=== PATIENT | female | born 1940 | race Caucasian/White ===

== ENCOUNTER 2016-04-26 20:15 | Emergency (ER) | payer MEDICARE, OTHER ==
[~2016-04-26 20:15] MED LIST: ACET325T40 PO; ALPR0.5T PO; AMLO-147 PO; ASPI-535 PO; BENA40TA41 PO; CALC-695 PO; CARV12.579 PO; CLON-379 PO; DOCU-159 PO; HYD25 PO; METF500T4 PO; MULT-7 PO; NIT4 SL; OMEP20CA16 PO; SENN-8 PO; ZOLP10TA PO
== END 2016-04-26 21:36 | disposition left against medical advice (07) ==
LOC: E/R 20:15
DX: Z53.21 Procedure and treatment not carried out due to patient leaving prior to being seen by health care provider (principal)

== ENCOUNTER 2016-04-26 22:17 | Emergency (ER) | payer MEDICARE, OTHER ==
[~2016-04-26] VITALS: Ht 162.6 cm; Wt 60.0 kg
[2016-04-26 22:21] VITALS: Ht 162.6 cm; Wt 60.0 kg
--- NOTE | 2016-04-27 03:24 | ERA ---
ER Documentation Chief Complaint Date/Time DATE: 04/27/16 TIME: 03:23 Chief Complaint High blood pressure HPI The patient is a 76-year-old female, presenting to the ER because of high blood pressure at home, it was 220/90 around 8 PM; therefore he came to the hospital. She complains of minimal head discomfort, minimal dizziness at that time but denies any symptoms now. She denies facial pain, neck pain, chest pain, abdominal pain, vomiting, dysuria, diarrhea. She has similar symptoms previously. She complains of minimal left-sided abdominal discomfort today but denies any symptoms now. She does not smoke, drink Past medical history: Hypertension, anxiety, CAD, diabetes mellitus Past surgical history: Left nephrectomy, stent PCI, bilateral femur ROS All systems reviewed and are negative except as per history of present illness. Medications Home Meds Active Scripts Clonidine Hcl* (Clonidine Hcl*) 0.1 Mg Tab, 0.2 MG PO BID, #30 TAB Prov:KAYLEE CAMERON MD 03/10/15 Acetaminophen (MAPAP) 325 Mg Tab, 650 MG PO Q6H Y for PAIN LEVEL 1-3 OR FEVER, # 30 TAB Prov:PRADEEP FLYNN MD 02/27/15 Zolpidem Tartrate* (Ambien*) 10 Mg Tablet, 10 MG PO QHS Y for INSOMNIA, #45 TAB Prov:PRADEEP FLYNN MD 02/27/15 Sennosides/Docusate Sodium* (Senna-S*) 1 Tab Tablet, 1 TAB PO BID Y for CONSTIPATION for 30 Days, TAB Prov:PRADEEP FLYNN MD 02/27/15 Alprazolam* (Xanax*) 0.5 Mg Tab, 0.5 MG PO Q8H Y for ANXIETY, #45 TAB 1 Refill Prov:PRADEEP FLYNN MD 02/27/15 Nitroglycerin* (Nitrostat*) 25 Tab Subl, 1 TAB SL [id number] Y for CHEST PAIN, #30 Prov:BLACK INIGUEZ MD 02/11/14 Reported Medications Multivitamins (Daily Multiple Vitamin) 1 Tab Tablet, 1 TAB PO DAILY, TAB 02/22/15 Hydrochlorothiazide* (Hydrochlorothiazide*) 25 Mg Tab, 25 MG PO DAILY, TAB 02/22/15 Carvedilol* (Carvedilol*) 12.5 Mg Tablet, 12.5 MG PO BID, TAB 02/22/15 Calcium Carbonate/Vitamin D3 (Calcium 600 + D Tablet) 1 Each Tablet, 1 EACH PO DAILY, TAB 02/22/15 Amlodipine Besylate* (Amlodipine Besylate*) 10 Mg Tablet, 10 MG PO DAILY, TAB 02/20/15 Benazepril Hcl* (Benazepril Hcl*) 40 Mg Tablet, 40 MG PO DAILY, TAB 02/20/15 Metformin* (Glucophage*) 500 Mg Tab, 500 MG PO BID, TAB 02/20/15 Docusate Sodium* (Docusate Sodium*) 100 Mg Capsule, 100 MG PO DAILY, CAP 02/20/15 Omeprazole* (Omeprazole*) 20 Mg Capsule.dr, 20 MG PO DAILY, CAP 02/20/15 Aspirin Ec (Aspir 81) 81 Mg Tablet.dr, 81 MG PO DAILY 11/29/11 Allergies Allergies: Coded Allergies: Sulfa (Sulfonamide Antibiotics) (Verified Allergy, Unknown, 03/11/15) penicillin G (Verified Allergy, Unknown, 03/11/15) PMhx/Soc History of Surgery: Yes (R kidney removed, HIP PINNING LT HIP;STENTS PLACED 2YRS AGO) Anesthesia Reaction: No Hx Neurological Disorder: No (SEIZURES) Hx Respiratory Disorders: No Hx Cardiac Disorders: Yes (HIGH BP;HIGH LIPIDS;STENTS) Hx Psychiatric Problems: No Hx Miscellaneous Medical Probl: No Hx Alcohol Use: No Hx Substance Use: No Hx Tobacco Use: No Smoking Status: Never smoker Physical Exam Vitals Vital Signs Date Time Temp Pulse Resp B/P Pulse Ox O2 Delivery O2 Flow Rate FiO2 04/27/16 03:20 64 17 206/85 100 Room Air 04/27/16 01:58 245/106 04/27/16 01:34 56 20 227/93 99 Room Air 04/27/16 00:56 216/102 04/26/16 23:30 207/81 04/26/16 23:11 240/101 04/26/16 22:21 98.9 78 20 274/140 99 Physical Exam Const: No acute distress. Head: Atraumatic. Eyes: Normal Conjunctiva. ENT: Normal External Ears, Nose and Mouth. Neck: Full range of motion. No meningismus. Resp: Clear to auscultation bilaterally. Cardio: Regular rate and rhythm, no murmurs. Abd: Soft, non distended, normal bowel sounds, non tender. No rigidity, rebound, CVA tenderness Skin: No petechiae or rashes. Back: No midline or flank tenderness. Ext: No cyanosis, or edema. Neur: Awake and alert. No focal deficit Psych: Normal Mood and Affect. Results 24 hrs Laboratory Tests Test 04/27/16 04:20 Activated Partial Thromboplast Time 24.2Sec INR International Normalized Ratio 0.95 Prothrombin Time 12.7Sec Prothrombin Time Ratio 1.0 Current Medications Medications (Trade) Dose Ordered Sig/Lupillo Route PRN Reason Start Time Stop Time Status Last Admin Dose Admin Hydralazine HCl (Apresoline) 10 mg ONCE ONCE IV 04/27/16 03:30 04/27/16 03:32 DC 04/27/16 04:03 Procedures/[place] [id number] Radiology Main Line: [phone] DIAGNOSTIC IMAGING REPORT Patient: MARV WINSTON : 1940 Age: 76 Sex: F MR #: [id number] DOS: 04/27/16 0330 Ordering MD: DYLAN PAIGE MD Location: E/R Room/Bed: PROCEDURE: CT brain without contrast. CLINICAL INDICATION: Headache. TECHNIQUE: CT scan of the brain was performed on a multi-detector high- resolution CT scanner. Contiguous axial images were obtained from the skull base to the vertex without intravenous contrast. Coronal and sagittal reformatted images were also obtained. Images were reviewed on the PACS workstation. One or more of the following dose reduction techniques were used: - Automated exposure control. - Adjustment of the mA and/or kV according to patient size. - Use of iterative reconstruction technique. Exam CTD/vol = 45.01 mGy. Total exam DLP = 720.23 mGy-cm. COMPARISON: 02/23/2015. FINDINGS: The ventricles and cortical sulci are prominent consistent with mild age related volume loss. There are no areas of abnormal attenuation within the brain parenchyma. There is no mass effect or midline shift. There is no intracranial hemorrhage or abnormal extra-axial collection. There are atherosclerotic calcifications within bilateral distal internal carotid arteries. The calvarium is intact. There is no evidence of fracture. Visualized paranasal sinuses and mastoid air cells are clear. IMPRESSION: No acute intracranial abnormality identified. Mild age related volume loss. Cerebral atherosclerosis. .Luan Frost MD, MD Date Time Electronically viewed and signed by .Luan Frost MD, on 04/27/2016 04:41 .T/ CC: DYLAN PAIGE MD MEDICAL MAKING DECISION: The patient is a 75-year-old female, presenting with acute accelerated hypertension. She was treated with hydralazine 10 mg IV with good response. The differential diagnoses considered include but are not limited to subarachnoid hemorrhage, occult trauma, CVA, meningitis, encephalitis , hypertension, tension, migraine, cluster, narcotic withdrawal, cervical spine disease. Departure Diagnosis: Primary Impression: Accelerated hypertension Condition: Good Comments I discussed the findings with the patient. I advised the patient to follow-up with the primary physician in about 1-2 days, sooner if needed and return if any concern. DYLAN PAIGE MD Apr 27, 2016 03:24
[2016-04-27] MEDS ORDERED: hydrALAzine 20 MG INJ IV ONE (03:30)
--- NOTE | 2016-04-27 04:42 | RADRPT ---
PROCEDURE: CT brain without contrast. CLINICAL INDICATION: Headache. TECHNIQUE: CT scan of the brain was performed on a multi-detector high-resolution CT scanner. Co ntiguous axial images were obtained from the skull base to the vertex without intravenous contrast. Coronal and sagittal reformatted images were also obtained. Images were reviewed on the PACS works tation. One or more of the following dose reduction techniques were used: - Automated exposure control. - Adjustment of the mA and/or kV according to patient size. - Use of iterative reconstruction technique. Exam CTD/vol = 45.01 mGy. Total exam DLP = 720.23 mGy-cm. COMPARISON: 02/23/2015. FINDINGS: The ventricles and cortical sulci are prominent consistent with mild age related volume loss. There are no areas of abnormal attenuation within the brain parenchyma. There is no mass effect or midli ne shift. There is no intracranial hemorrhage or abnormal extra-axial collection. There are atheros clerotic calcifications within bilateral distal internal carotid arteries. The calvarium is intact. There is no evidence of fracture. Visualized paranasal sinuses and mastoi d air cells are clear. IMPRESSION: No acute intracranial abnormality identified. Mild age related volume loss. Cerebral atherosclerosis. .Luan Frost MD, Date Time Electronically viewed and signed by .Luan Frost MD, MD on 04/27/2016 04:41 .T/
[2016-04-27 05:00] VITALS: BP 155/60; PULSE 64; RESP 16; TEMP 98.9
[2016-04-27 05:04] LABS: INR 0.95; PROTIME 12.7 Sec (12.2-14.2)
[2016-04-27 05:05] LABS: PARTIAL THROMBOPLASTIN TIME 24.2 Sec (25.0-35.0)
[2016-04-27 05:07] LABS: POTASSIUM 4.5 mmol/L (3.5-5.1)
[2016-04-27 05:10] LABS: CALCIUM 10.2 mg/dl (8.4-10.2); CREATININE 0.81 mg/dl (0.44-1.00)
[2016-04-27 05:18] LABS: HEMOGLOBIN 12.1 g/dl (12.0-16.0); RED BLOOD COUNT 3.76 10^6/ul (4.20-5.40); WHITE BLOOD COUNT 8.2 10^3/ul (4.8-10.8)
[2016-04-27 05:19] LABS: BASOPHILS % 0.6 % (0.0-2.0); EOSINOPHILS % 2.8 % (0.0-7.0); HEMATOCRIT 34.4 % (37.0-47.0); LYMPHOCYTES % 36.6 % (15.0-51.0); MEAN CORPUSCULAR HEMOGLOBIN 32.2 pg (29.0-33.0); MEAN CORPUSCULAR HGB CONC 35.2 g/dl (32.0-37.0); MEAN CORPUSCULAR VOLUME 91.5 fl (82.0-101.0); MEAN PLATELET VOLUME 10.3 fl (7.4-10.4); MONOCYTE # 0.9 10^3/ul (0.3-0.9); MONOCYTES % 10.9 % (0.0-11.0); PLATELET COUNT 225 10^3/UL (140-440); RED CELL DISTRIBUTION WIDTH 12.1 % (11.5-14.5)
[2016-04-27 05:20] LABS: BASOPHIL # 0.1 10^3/ul (0.0-0.1); EOSINOPHILS # 0.2 10^3/ul (0.0-0.5)
== END 2016-04-27 06:20 | disposition home or self-care (01) ==
LOC: E/R 22:17
DX: I10 Essential (primary) hypertension (principal); E11.9 Type 2 diabetes mellitus without complications; I25.10 Atherosclerotic heart disease of native coronary artery without angina pectoris; R42 Dizziness and giddiness; R10.9 Unspecified abdominal pain; Z79.82 Long term (current) use of aspirin; Z79.84 Long term (current) use of oral hypoglycemic drugs; Z95.5 Presence of coronary angioplasty implant and graft
CPT/HCPCS: 70450; 80048; 85025; 85610; 85730; J0360; 36415; 96374

== ENCOUNTER 2017-01-05 10:54 | Emergency (ER) | payer MEDICARE, OTHER ==
[~2017-01-05] VITALS: Ht 162.6 cm; Wt 58.0 kg
[~2017-01-05 10:54] MED LIST changes: -HYD25 PO; +HYDR25TA6 PO
[2017-01-05 10:59] VITALS: Ht 162.6 cm; Wt 58.0 kg
[2017-01-05] MEDS ORDERED: SOD CHLORIDE 0.9% 1,000 ML IV STA (11:36)
[2017-01-05 11:52] LABS: BASOPHILS % 0.5 % (0.0-2.0); EOSINOPHILS # 0.2 10^3/ul (0.0-0.5); EOSINOPHILS % 3.1 % (0.0-7.0); HEMATOCRIT 34.8 % (37.0-47.0); HEMOGLOBIN 12.2 g/dl (12.0-16.0); LYMPHOCYTES # 1.9 10^3/ul (0.8-2.9); LYMPHOCYTES % 29.5 % (15.0-51.0); MEAN CORPUSCULAR HEMOGLOBIN 32.1 pg (29.0-33.0); MEAN CORPUSCULAR HGB CONC 35.1 g/dl (32.0-37.0); MEAN CORPUSCULAR VOLUME 91.6 fl (82.0-101.0); MEAN PLATELET VOLUME 9.5 fl (7.4-10.4); MONOCYTE # 0.6 10^3/ul (0.3-0.9); MONOCYTES % 9.1 % (0.0-11.0); NEUTROPHIL # 3.8 10^3/ul (1.6-7.5); NEUTROPHILS % 57.6 % (39.0-77.0); PLATELET COUNT 227 10^3/UL (140-415); RED CELL DISTRIBUTION WIDTH 11.9 % (11.5-14.5); WHITE BLOOD COUNT 6.5 10^3/ul (4.8-10.8)
[2017-01-05 11:55] LABS: ADD UMIC NO; UR ASCORBIC ACID NEGATIVE (NEGATIVE); UR BILIRUBIN (Dip) NEGATIVE (NEGATIVE); UR BLOOD (Dip) NEGATIVE (NEGATIVE); UR CLARITY CLEAR (CLEAR); UR COLOR STRAW (YELLOW); UR GLUCOSE (Dip) NEGATIVE (NEGATIVE); UR KETONES (Dip) NEGATIVE (NEGATIVE); UR LEUKOCYTE ESTERASE (Dip) NEGATIVE Leu/ul (NEGATIVE); UR NITRITE (Dip) NEGATIVE (NEGATIVE); UR RBC 0 /HPF (0-5); UR SPECIFIC GRAVITY (Dip) 1.003 (1.003-1.030); UR TOTAL PROTEIN (Dip) NEGATIVE (NEGATIVE); UR UROBILINOGEN (Dip) NEGATIVE (NEGATIVE)
[2017-01-05 12:12] LABS: ALBUMIN 4.9 g/dl (3.3-4.9); ALBUMIN/GLOBULIN RATIO 1.36; BILIRUBIN,INDIRECT 0.6 mg/dl (0-1.1); BILIRUBIN,TOTAL 0.6 mg/dl (0.2-1.3); CALCIUM 9.7 mg/dl (8.4-10.2); CREATININE 0.85 mg/dl (0.44-1.00); POTASSIUM 4.6 mmol/L (3.5-5.1); TOTAL PROTEIN 8.5 g/dl (6.1-8.1)
[2017-01-05] MEDS ORDERED: hydrALAzine 20 MG INJ IV ONE (12:30)
--- NOTE | 2017-01-05 13:01 | RADRPT ---
PROCEDURE: Ultrasound Retroperitoneum. CLINICAL INDICATION: Flank pain. History of right-sided renal cell carcinoma. TECHNIQUE: Ochoa scale and color flow sonographic images of the kidneys and retroperitoneum were ob tained. The images were reviewed on a PACS workstation. COMPARISON: No prior studies are available for comparison. FINDINGS: The right kidney has been removed. The left kidney measures 11.0 cm. The left kidney demonstrates a normal echogenicity. No masses, stones or hydronephrosis are identified. The bladder is filled with a [id number] amount of urine and has an unremarkable appearance. IMPRESSION: Status post right nephrectomy. Unremarkable left kidney. RPTAT: AA .Clark Armstrong MD, Date Time Electronically viewed and signed by .Clark Armstrong MD, MD on 01/05/2017 13:01 .P/
[2017-01-05 13:20] VITALS: BP 165/59; PULSE 73; RESP 16
--- NOTE | 2017-01-05 15:11 | ERD ---
ER Documentation Chief Complaint Date/Time DATE: 01/05/17 TIME: 15:10 Chief Complaint PAINFUL URINATION , LOWER BACK PAINX 3 DAYS , HTN HPI 77-year-old female with a history of right renal cell carcinoma status post right nephrectomy, and uterine prolapse with frequent UTIs presenting with complaints of painful urination and burning lower back pain for the past 3 days. She denies any associated fever, chills, nausea, vomiting, or flank pain. She does complain of mild suprapubic pain described as pressure. No vaginal discharge. She denies any chest pain or shortness of breath. No headache. ROS All systems reviewed and are negative except as per history of present illness. Medications Home Meds Active Scripts Clonidine Hcl* (Clonidine Hcl*) 0.1 Mg Tab, 0.2 MG PO BID, #30 TAB Prov:KAYLEE CAMERON MD 03/10/15 Acetaminophen (MAPAP) 325 Mg Tab, 650 MG PO Q6H Y for PAIN LEVEL 1-3 OR FEVER, # 30 TAB Prov:PRADEEP FLYNN MD 02/27/15 Zolpidem Tartrate* (Ambien*) 10 Mg Tablet, 10 MG PO QHS Y for INSOMNIA, #45 TAB Prov:PRADEEP FLYNN MD 02/27/15 Sennosides/Docusate Sodium* (Senna-S*) 1 Tab Tablet, 1 TAB PO BID Y for CONSTIPATION for 30 Days, TAB Prov:PRADEEP FLYNN MD 02/27/15 Alprazolam* (Xanax*) 0.5 Mg Tab, 0.5 MG PO Q8H Y for ANXIETY, #45 TAB 1 Refill Prov:PRADEEP FLYNN MD 02/27/15 Nitroglycerin* (Nitrostat*) 25 Tab Subl, 1 TAB SL [id number] Y for CHEST PAIN, #30 Prov:BLACK INIGUEZ MD 02/11/14 Reported Medications Multivitamins (Daily Multiple Vitamin) 1 Tab Tablet, 1 TAB PO DAILY, TAB 02/22/15 Hydrochlorothiazide* (Hydrochlorothiazide*) 25 Mg Tab, 25 MG PO DAILY, TAB 02/22/15 Carvedilol* (Carvedilol*) 12.5 Mg Tablet, 12.5 MG PO BID, TAB 02/22/15 Calcium Carbonate/Vitamin D3 (Calcium 600 + D Tablet) 1 Each Tablet, 1 EACH PO DAILY, TAB 02/22/15 Amlodipine Besylate* (Amlodipine Besylate*) 10 Mg Tablet, 10 MG PO DAILY, TAB 02/20/15 Benazepril Hcl* (Benazepril Hcl*) 40 Mg Tablet, 40 MG PO DAILY, TAB 02/20/15 Metformin* (Glucophage*) 500 Mg Tab, 500 MG PO BID, TAB 02/20/15 Docusate Sodium* (Docusate Sodium*) 100 Mg Capsule, 100 MG PO DAILY, CAP 02/20/15 Omeprazole* (Omeprazole*) 20 Mg Capsule.dr, 20 MG PO DAILY, CAP 02/20/15 Aspirin Ec (Aspir 81) 81 Mg Tablet.dr, 81 MG PO DAILY 11/29/11 Allergies Allergies: Coded Allergies: Sulfa (Sulfonamide Antibiotics) (Verified Allergy, Unknown, 03/11/15) penicillin G (Verified Allergy, Unknown, 03/11/15) PMhx/Soc History of Surgery: Yes (R kidney removed, HIP PINNING LT HIP;STENTS PLACED 2YRS AGO) Anesthesia Reaction: No Hx Neurological Disorder: No (SEIZURES) Hx Respiratory Disorders: No Hx Cardiac Disorders: Yes (HIGH BP;HIGH LIPIDS;STENTS) Hx Psychiatric Problems: No Hx Miscellaneous Medical Probl: Yes (Right renal cell carcinoma, uterine prolapse) Hx Alcohol Use: No Hx Substance Use: No Hx Tobacco Use: No Smoking Status: Never smoker FmHx Family History: No diabetes Physical Exam Vitals Vital Signs Date Time Temp Pulse Resp B/P Pulse Ox O2 Delivery O2 Flow Rate FiO2 01/05/17 13:20 73 16 165/59 99 Room Air 01/05/17 12:01 63 16 218/91 99 Room Air 01/05/17 10:59 98.9 62 18 204/142 99 Physical Exam Const: Well-appearing, nontoxic, no distress Head: Atraumatic Eyes: Normal Conjunctiva ENT: Normal External Ears, Nose and Mouth. Neck: Full range of motion..~ No meningismus. Resp: Clear to auscultation bilaterally Cardio: Regular rate and rhythm, no murmurs Abd: Soft, minimal suprapubic tenderness, no rebound or guarding, non distended. Normal bowel sounds Skin: No petechiae or rashes Back: No midline or flank tenderness Ext: No cyanosis, or edema. 2+ distal pulses in all 4 extremities Neur: Awake and alert Psych: Normal Mood and Affect Result Diagram: 01/05/17 1140 01/05/17 1140 Results 24 hrs Laboratory Tests Test 01/05/17 11:30 01/05/17 11:40 Urine Color STRAW Urine Clarity CLEAR Urine pH 7.0 Urine Specific Keller 1.003 Urine Ketones NEGATIVEmg/dL Urine Nitrite NEGATIVEmg/dL Urine Bilirubin NEGATIVEmg/dL Urine Urobilinogen NEGATIVEmg/dL Urine Leukocyte Esterase NEGATIVELeu/ul Urine Microscopic RBC 0/HPF Urine Microscopic WBC 0/HPF Urine Hemoglobin NEGATIVEmg/dL Urine Glucose NEGATIVEmg/dL Urine Total Protein NEGATIVEmg/dl White Blood Count 6.510^3/ul Red Blood Count 3.8010^6/ul Hemoglobin 12.2g/dl Hematocrit 34.8% Mean Corpuscular Volume 91.6fl Mean Corpuscular Hemoglobin 32.1pg Mean Corpuscular Hemoglobin Concent 35.1g/dl Red Cell Distribution Width 11.9% Platelet Count 74134^3/UL Mean Platelet Volume 9.5fl Neutrophils % 57.6% Lymphocytes % 29.5% Monocytes % 9.1% Eosinophils % 3.1% Basophils % 0.5% Nucleated Red Blood Cells % 0.0/100WBC Neutrophils # 3.810^3/ul Lymphocytes # 1.910^3/ul Monocytes # 0.610^3/ul Eosinophils # 0.210^3/ul Basophils # 0.010^3/ul Nucleated Red Blood Cells # 0.010^3/ul Sodium Level 133mmol/L Potassium Level 4.6mmol/L Chloride Level 96mmol/L Carbon Dioxide Level 26mmol/L Anion Gap 16 Blood Urea Nitrogen 16mg/dl Creatinine 0.85mg/dl Glucose Level 131mg/dl Calcium Level 9.7mg/dl Total Bilirubin 0.6mg/dl Direct Bilirubin 0.00mg/dl Indirect Bilirubin 0.6mg/dl Aspartate Amino Transf (AST/SGOT) 31IU/L Alanine Aminotransferase (ALT/SGPT) 38IU/L Alkaline Phosphatase 76IU/L Total Protein 8.5g/dl Albumin 4.9g/dl Globulin 3.60g/dl Albumin/Globulin Ratio 1.36 Current Medications Medications (Trade) Dose Ordered Sig/Lupillo Route PRN Reason Start Time Stop Time Status Last Admin Dose Admin Sodium Chloride (NS) 1,000 ml @ 1,000 mls/hr Q1H STAT IV 01/05/17 11:36 01/05/17 12:35 DC 01/05/17 11:52 Hydralazine HCl (Apresoline) 10 mg ONCE ONCE IV 01/05/17 12:30 01/05/17 12:31 DC 01/05/17 12:54 Procedures/MDM Labs CBC: no anemia or evidence of infection CMP: No evidence of electrolyte abnormality, renal failure, hypoglycemia, liver failure, or biliary obstruction Troponin within normal limits UA: no evidence of infection Ultrasound left kidney: IMPRESSION: Status post right nephrectomy. Unremarkable left kidney. RPTAT: AA .Clark Armstrong MD, MD Date Time Electronically viewed and signed by .Clark Armstrong MD, MD on 01/05/2017 13:01 [facility] Patient is presenting with dysuria and lower back pain. Vitals are stable other than hypertension but she was afebrile and nontoxic on my exam. I have a low suspicion for acute surgical abdomen, including low suspicion for aortic dissection or retroperitoneal hemorrhage. Patient's labs and urinalysis were normal. There does not seem to be evidence of UTI. I did ultrasound of her kidney and there was no acute abnormalities. I suspect the patient's discomfort may be secondary to her uterine prolapse. Her blood pressure was high but she was asymptomatic. However given it did rise while in the ED, I did give her 1 dose of IV antihypertensives with improvement of her blood pressure. I recommended follow-up with her primary care doctor tomorrow, to check for improvement and for a repeat blood pressure check.. She was advised to return to the ER sooner if any of her symptoms worsen. However I believe the patient is stable for discharge at this time. Patient's blood pressure was elevated (>120/80) but appears stable without evidence of hypertension emergency or urgency. The patient was counseled about the risks of hypertension and urged to pursue outpatient monitoring and therapy within a week with their primary care physician. Departure Diagnosis: Primary Impression: Dysuria Additional Impressions: History of uterine prolapse Asymptomatic hypertension Condition: Stable Patient Instructions: Dysuria, Hypertension, Established, Out Of Control Additional Instructions: Cyndie solo camila con mccoy medico primario manana para chekear mccoy presion. Mccoy presion no esta controllado ulises. Regresa a la nora de emergencias si estas empeorando. DUSTIN CARRANZA MD Jan 05, 2017 15:11
== END 2017-01-05 13:36 | disposition home or self-care (01) ==
LOC: E/R 10:54
DX: R30.0 Dysuria (principal); I10 Essential (primary) hypertension; Z79.82 Long term (current) use of aspirin; Z87.42 Personal history of other diseases of the female genital tract
CPT/HCPCS: 36415; 76775; 80053; 81003; 85025; 87086; 96374; 99285; J0360; J7030

== ENCOUNTER 2017-11-28 23:38 | Emergency (ER) | END 2017-11-29 03:06 | disposition home or self-care (01) ==

== ENCOUNTER 2018-05-20 09:28 | Emergency (ER) | payer MEDICARE, OTHER ==
[~2018-05-20] VITALS: Wt 61.1 kg
[~2018-05-20 09:28] MED LIST changes: -ACET325T40 PO; -ALPR0.5T PO; -BENA40TA41 PO; +BENA40TA56 PO; +CIPR500T4 PO; +METF-849 PO; -METF500T4 PO; -NIT4 SL; +NITR-58 PO; +NITR0.4T39 SL; -OMEP20CA16 PO; +PHEN-538 PO
--- NOTE | 2018-05-20 10:06 | ERD ---
ER Documentation Chief Complaint Chief Complaint l. arm pain rad into l. chest, back pain, dizziness HPI 78-year-old woman here with multiple complaints including 1 day of back pain, left chest pain, abdominal pain, dizziness, and left arm pain. Patient has had some nausea but denies loss of consciousness, no fevers or chills, no vomiting or diarrhea, no headache or blurry vision. ROS All systems reviewed and are negative except as per history of present illness. Medications Home Meds Active Scripts Naproxen* (Naprosyn*) 500 Mg Tablet, 500 MG PO BID PRN for PAIN AND/OR I NFLAMMATION, #30 TAB Prov:EMILY MAX MD 05/20/18 Alprazolam* (Xanax*) 0.5 Mg Tab, 0.5 MG PO TID PRN for ANXIETY, #12 TAB Prov:EMILY MAX MD 05/20/18 Ciprofloxacin Hcl* (Ciprofloxacin Hcl*) 500 Mg Tablet, 500 MG PO BID for 7 Days, TAB Prov:DYLAN PAIGE MD 11/29/17 Clonidine Hcl* (Clonidine Hcl*) 0.1 Mg Tab, 0.2 MG PO BID, #30 TAB Prov:KAYLEE CAMERON MD 03/10/15 Zolpidem Tartrate* (Ambien*) 10 Mg Tablet, 10 MG PO QHS PRN for INSOMNIA, #45 TAB Prov:PRADEEP FLYNN MD 02/27/15 Nitroglycerin* (Nitrostat*) 25 Tab Subl, 1 TAB SL [id number] PRN for CHEST PAIN, #30 Prov:BLACK INIGUEZ MD 02/11/14 Reported Medications Multivitamins (Daily Multiple Vitamin) 1 Tab Tablet, 1 TAB PO DAILY, TAB 02/22/15 Hydrochlorothiazide* (Hydrochlorothiazide*) 25 Mg Tab, 25 MG PO DAILY, TAB 02/22/15 Carvedilol* (Carvedilol*) 12.5 Mg Tablet, 12.5 MG PO BID, TAB 02/22/15 Calcium Carbonate/Vitamin D3 (Calcium 600 + D Tablet) 1 Each Tablet, 1 EACH PO DAILY, TAB 02/22/15 Amlodipine Besylate* (Amlodipine Besylate*) 10 Mg Tablet, 10 MG PO DAILY, TAB 02/20/15 Benazepril Hcl* (Benazepril Hcl*) 40 Mg Tablet, 40 MG PO DAILY, TAB 02/20/15 Metformin* (Glucophage*) 500 Mg Tab, 500 MG PO BID, TAB 02/20/15 Docusate Sodium* (Docusate Sodium*) 100 Mg Capsule, 100 MG PO DAILY, CAP 02/20/15 Aspirin Ec (Aspir 81) 81 Mg Tablet.dr, 81 MG PO DAILY 11/29/11 Discontinued Scripts Phenazopyridine Hcl* (Pyridium*) 200 Mg Tab, 200 MG PO TID PRN for URINARY PAIN, #6 TAB Prov:DYLAN PAIGE MD 04/23/18 Nitrofurantoin Monohyd Macrocr* (Macrobid*) 100 Mg Capsr, 100 MG PO HS for 7 Days, CAP Prov:DYLAN PAIGE MD 04/23/18 Sennosides/Docusate Sodium* (Senna-S*) 1 Tab Tablet, 1 TAB PO BID PRN for CONSTIPATION for 30 Days, TAB Prov:PRADEEP FLYNN MD 02/27/15 Allergies Allergies: Coded Allergies: Sulfa (Sulfonamide Antibiotics) (Unverified Allergy, Unknown, 04/23/18) penicillin G (Unverified Allergy, Unknown, 04/23/18) PMhx/Soc hypertension, diabetes mellitus, hyperlipidemia, renal cell carcinoma status post right nephrectomy, uterine prolapse, CAD status post PCI with stents, anxiety, seizure disorder History of Surgery: Yes (R kidney removed, HIP PINNING LT HIP;STENTS PLACED 2YRS AGO) Anesthesia Reaction: No Hx Neurological Disorder: No (SEIZURES) Hx Respiratory Disorders: No Hx Cardiac Disorders: Yes (HIGH BP;HIGH LIPIDS;STENTS) Hx Psychiatric Problems: No Hx Miscellaneous Medical Probl: Yes (osteoporosis, Right renal cell carcinoma, uterine prolapse, dm) Hx Alcohol Use: No Hx Substance Use: No Hx Tobacco Use: No Physical Exam Vitals Vital Signs Date Temp Pulse Resp B/P (MAP) Pulse Ox O2 O2 Flow FiO2 Time Delivery Rate 05/20/18 60 18 119/50 98 Room Air 12:02 (73) 05/20/18 97.9 70 20 197/86 96 09:31 (123) Physical Exam Const: Anxious, afebrile Head: Atraumatic Eyes: Normal Conjunctiva ENT: Normal External Ears, Nose and Mouth. Neck: Full range of motion. No meningismus. Resp: Clear to auscultation bilaterally Cardio: Regular rate and rhythm, no murmurs Abd: Soft, non tender, non distended. Normal bowel sounds Skin: No petechiae or rashes Back: No midline or flank tenderness Ext: No cyanosis, or edema Neur: Awake and alert x3, no focal deficits or facial asymmetry Psych: Appears anxious Result Diagram: 05/20/18 1035 05/20/18 1035 Results 24 hrs Laboratory Tests Test 05/20/18 10:35 White Blood Count 8.0 10^3/ul Red Blood Count 3.73 10^6/ul Hemoglobin 11.7 g/dl Hematocrit 34.5 % Mean Corpuscular Volume 92.5 fl Mean Corpuscular Hemoglobin 31.4 pg Mean Corpuscular Hemoglobin Concent 33.9 g/dl Red Cell Distribution Width 11.9 % Platelet Count 217 10^3/UL Mean Platelet Volume 9.6 fl Immature Granulocytes % 0.500 % Neutrophils % 68.5 % Lymphocytes % 23.6 % Monocytes % 5.7 % Eosinophils % 1.1 % Basophils % 0.6 % Nucleated Red Blood Cells % 0.0 /100WBC Immature Granulocytes # 0.040 10^3/ul Neutrophils # 5.5 10^3/ul Lymphocytes # 1.9 10^3/ul Monocytes # 0.5 10^3/ul Eosinophils # 0.1 10^3/ul Basophils # 0.1 10^3/ul Nucleated Red Blood Cells # 0.0 10^3/ul Sodium Level 134 mmol/L Potassium Level 3.9 mmol/L Chloride Level 99 mmol/L Carbon Dioxide Level 22 mmol/L Anion Gap 13 Blood Urea Nitrogen 15 mg/dl Creatinine 0.73 mg/dl Est Glomerular Filtrat Rate mL/min mL/min Glucose Level 194 mg/dl Calcium Level 9.7 mg/dl Total Bilirubin 0.3 mg/dl Direct Bilirubin 0.00 mg/dl Indirect Bilirubin 0.3 mg/dl Aspartate Amino Transf (AST/SGOT) 28 IU/L Alanine Aminotransferase (ALT/SGPT) 19 IU/L Alkaline Phosphatase 103 IU/L Troponin I < 0.012 ng/ml Total Protein 7.9 g/dl Albumin 4.6 g/dl Globulin 3.30 g/dl Albumin/Globulin Ratio 1.39 Lipase 74 U/L Current Medications Medications Dose Sig/Lupillo Start Time Status Last (Trade) Ordered Route PRN Stop Time Admin Dose Reason Admin Alprazolam 1 mg ONCE ONCE 05/20/18 DC 05/20/18 (Xanax) PO 10:30 10:53 05/20/18 10:31 Sodium 1,000 ml @ Q1H STAT 05/20/18 DC 05/20/18 Chloride 1,000 mls/hr IV 10:19 10:53 05/20/18 11:18 Ondansetron 4 mg ONCE STAT 05/20/18 DC 05/20/18 HCl (Zofran IV 10:19 10:53 Inj) 05/20/18 10:20 40 ml ONCE STAT 05/20/18 DC 05/20/18 Miscellaneous PO 10: 10:52 Medication 05/20/18 10:20 (Gi Cocktail (2)) Belladonna/ 2 tab ONCE STAT 05/20/18 DC 05/20/18 Phenobarbital PO 10: 10:53 () 05/20/18 10:20 Procedures/MDM IV line was established patient was placed on backup operator rhythm strip revealed a sinus rhythm at about 80 bpm with upright P and T waves. Patient was afebrile EKG performed, read by me revealed a normal sinus rhythm at 66 bpm, normal axis, narrow QRS complex, no concerning ST elevations or depressions noted I administered 1 L normal saline IV, alprazolam 1 mg p.o., GI cocktail p.o., Zofran 4 mg IV Chest X-ray 1V Interpreted by me: Soft Tissue: No acute abnormalities Bones: No acute abnormalities Mediastinum/Cardiac Silhouette/Lungs: No acute abnormalities CBC and electrolytes are normal, liver function tests normal, troponin negative. I did order a UA although the patient could not provide a urine sample and felt better and wanted to go home. I recommend that she follow-up with PMD to still undergo testing for UA although she is without complaints of dysuria, hematuria, urinary hesitancy or urinary frequency. Patient's hypertension resolved in the ER. Differential diagnoses considered, included but not limited to acute coronary syndrome, pulmonary embolism, aortic dissection, abdominal aortic aneurysm, seps is, stroke, meningitis, encephalitis, pneumonia, appendicitis, cholecystitis, bowel obstruction, pyelonephritis, nephrolithiasis, cystitis, as well as metabolic, hematologic, and electrolyte abnormalities. As well as abscess, cellulitis, fractures, and dislocations. Patient feels much better at this time, and vital signs are normal, symptoms have improved. I did give strict instructions to return to the ED if symptoms continue or worsen, patient will otherwise follow-up with primary care physic miguel a. Patient understood instructions and agreed to plan. Disclaimer: Inadvertent spelling and grammatical errors are likely due to EHR/dictation software use and do not reflect on the overall quality of patient care. Also, please note that the electronic time recorded on this note does not necessarily reflect the actual time of the patient encounter. Departure Diagnosis: Primary Impression: Hypertension Hypertension type: essential hypertension Qualified Codes: I10 - Essential (primary) hypertension Additional Impressions: Anxiety Chest pain Chest pain type: unspecified Qualified Codes: R07.9 - Chest pain, unspeci fied Condition: EMILY Walls MD May 20, 2018 10:06
[2018-05-20] MEDS ORDERED: LIDOCAINE/MYLANTA 40 ML BTL PO STA (10:19)
[2018-05-20] MEDS ORDERED: ONDANSETRON 4 MG INJ IV STA (10:19)
[2018-05-20] MEDS ORDERED: SOD CHLORIDE 0.9% 1,000 ML IV STA (10:19)
[2018-05-20] MEDS ORDERED: BELLADONNA/PHENOBARBITAL TAB PO STA (10:19)
[2018-05-20] MEDS ORDERED: ALPRAZOLAM 1 MG TAB PO ONE (10:30)
[2018-05-20] MEDS ORDERED: ALPR0.5T PO (11:35)
[2018-05-20] MEDS ORDERED: NAPR-985 PO (11:35)
[2018-05-20 12:02] VITALS: BP 119/50; PULSE 60; RESP 18
== END 2018-05-20 12:24 | disposition home or self-care (01) ==
LOC: E/R 09:28
DX: I10 Essential (primary) hypertension (principal); E11.9 Type 2 diabetes mellitus without complications; I25.10 Atherosclerotic heart disease of native coronary artery without angina pectoris; F41.9 Anxiety disorder, unspecified; Z79.82 Long term (current) use of aspirin; Z79.84 Long term (current) use of oral hypoglycemic drugs; Z85.528 Personal history of other malignant neoplasm of kidney; Z98.61 Coronary angioplasty status
CPT/HCPCS: 36415; 71045; 80053; 83690; 84484; 85025; 93005; 96374; 99285; J2405; J7030